=== PATIENT | male | born 1950 | race Caucasian/White ===

== ENCOUNTER 2017-07-12 04:54 | Inpatient (IN) ==
--- NOTE | 2017-07-12 04:59 | Emergency Department Note ---
ED Disposition Clinical Impression: Acute coronary syndrome Disposition: Still a Patient Condition on Discharge: Serious - Critical Care Critical Care Time: Yes Attestation: On , the high probability of a clinically significant, sudden or life threatening deterioration of the following system(s) required my full and direct attention, intervention and personal management. The time I documented below is in addition to time spent performing reported procedures but includes the following listed in this critical care notation. Vital system(s) involved:: Circulatory Failure My critical care processes included: Assessment & monitoring of V/S, Initial and Re-exams, Data Review/Interpretation, Coordinating Care, Medication Orders and management, Documentation Medical Decision Making - Anastacio Inquiry Pt receiving controlled substance: No Vital Signs: 07/12/17 04:55 07/12/17 05:55 07/12/17 06:00 Temperature 98.4 F Temperature Source Oral Pulse Rate [Right Radial] 75 69 71 Respiratory Rate 19 16 Blood Pressure [Right Arm] 148/90 143/87 149/96 Blood Pressure Mean [Right Arm] 109 105 113 Blood Pressure Source [Right Arm] Automatic Cuff Automatic Cuff Automatic Cuff Blood Pressure Position [Right Arm] Sitting Sitting 02 Sat by Pulse Oximetry 98 98 98 Oxygen Delivery Method Room Air Room Air 07/12/17 06:55 07/12/17 07:00 07/12/17 07:05 Temperature Temperature Source Pulse Rate [Right Radial] 67 83 70 Respiratory Rate 12 17 14 Blood Pressure [Right Arm] 139/90 119/70 123/81 Blood Pressure Mean [Right Arm] 106 86 95 Blood Pressure Source [Right Arm] Automatic Cuff Automatic Cuff Automatic Cuff Blood Pressure Position [Right Arm] Supine Sitting Sitting 02 Sat by Pulse Oximetry 97 97 97 Oxygen Delivery Method Room Air Room Air 07/12/17 07:17 Temperature Temperature Source Pulse Rate [Right Radial] 74 Respiratory Rate 14 Blood Pressure [Right Arm] 122/77 Blood Pressure Mean [Right Arm] 92 Blood Pressure Source [Right Arm] Automatic Cuff Blood Pressure Position [Right Arm] Sitting 02 Sat by Pulse Oximetry 97 Oxygen Delivery Method - Lab Data Lab Results 07/12/17 05:15: WBC 5.8, RBC 4.15 L, Hgb 13.0 L, Hct 40.0 L, MCV 96.5 H, MCH 31.2, MCHC 32.4, RDW 12.8, Plt Count 254, MPV 6.8 L, Neut % (Auto) 58.8, Lymph % (Auto) 32.6, [place] % (Auto) 6.2, Eos % (Auto) 2.1, Baso % (Auto) 0.4, Neut # ( Auto) 3.4, Lymph # (Auto) 1.9, [place] # (Auto) 0.4, Eos # (Auto) 0.1, Baso # (Auto ) 0.0 07/12/17 05:15: Sodium 141, Potassium 3.6, Chloride 104, Carbon Dioxide 27, Anion Gap 13.6, BUN 17, Creatinine 1.10, Estimated Creat Clear 85, Estimated GFR 67, Est GFR ( Amer) 81, Glucose 110 H, Calcium 8.4 L, Total Bilirubin 0.2, AST 24, ALT 35, Alkaline Phosphatase 90, Total Creatine Kinase 397 H, CK-MB (CK-2) 9.1 H*, CK-MB (CK-2) Rel Index 2.3, Troponin I 0.44 H, Total Protein 6.9, Albumin 3.6, Globulin 3.3 H, Albumin/Globulin Ratio 1.1 07/12/17 05:15: D-Dimer 307 Result diagrams: 07/12/17 05:15 07/12/17 05:15 Orders (Tests/Meds): ED MEDICATIONS Generic Name Dose Route Start Last Admin Trade Name Freq PRN Reason Stop Dose Admin Metoprolol Tartrate 50 mg 07/12/17 09:00 Lopressor 50mg Tablet PO 08/11/17 08:59 BID YUE Nitroglycerin 0.4 mg 07/12/17 06:53 07/12/17 07:05 Nitrostat 0.4mg Sl Tablet SL 07/13/17 06:54 0.4 mg Q5MINP PRN Administration Chest Pain Nitroglycerin 1 gm 07/12/17 07:15 07/12/17 07:10 Nitroglycerin 1 Inch Oint Udp TD 08/11/17 07:14 1 gm Q6H YUE Administration Discontinued Medications Generic Name Dose Route Start Last Admin Trade Name Freq PRN Reason Stop Dose Admin Aspirin 162 mg 07/12/17 05:05 07/12/17 05:07 Aspirin 81mg Chewable Tablet PO 07/12/17 05:06 162 mg ONCE ONE Administration Ticagrelor 180 mg 07/12/17 07:02 07/12/17 07:13 Brilinta 90mg Tablet PO 07/12/17 07:03 180 mg ONCE ONE Administration ORDERS Category Date Time Status XR chest 2V Stat Exams 07/12/17 05:05 Taken - Radiology Data #1 Image(s): Chest Image Reviewed: Yes I reviewed the patient's radiology image Increased density at the lateral aspect of minor fissure - ECG Data Tracing #1 EKG interpreted by Raul Gates MD: Rhythm: sinus Rate: 77 [place]: normal Ectopy: none Conduction: normal ST Segment Changes: none T Wave Changes: none Q Waves: none No evidence of acute ischemia or injury Normal electrocardiogram Baseline artifact present, but I consider the EKG adequate for accurate interpretation. - MARGUERITE Score for Non-STEMI Age of patient: 65 yrs or more Number of risk factors for CAD: Presence of less than 3 Prior coronary artery stenosis(seen in coronary angiography): Less than 50% ST-Segment deviation on ECG (more than 1 min): Absent Prior aspirin intake: No ASA in the last 7 days Severe anginal chest pain: Two or more episodes in last 24 hours Elevated cardiac markers(CK-MB or troponin): Present Non-Stemi Risk Score: 3 Medical Decision Narrative: 6:50 AM: Pain 06/07. 6:55 AM: Discussed with Dr. Gayle. He requests Brilinta 180 mg, oral metoprolol. Admit, and he will consult. 7:00 AM: I have discussed the case with Dr. Mares for Dr. Benitez who agrees to admit the patient to the hospital. We discussed the patient's clinical information, including history, exam, laboratory and radiology results and ED course. Per hospital procedure, I will write temporary bridge inpatient orders on the patient. Specific orders requested by the admitting physician: Serial cardiac enzymes, cardiology consult General Adult HPI - General Stated complaint: chest pain Time Seen by Provider: 07/12/17 05:49 - History of Present Illness HPI narrative: The patient complains of 24 hours of intermittent chest pain. He describes it as sharp, left parasternal in location, lasting minutes at a time. He says it is there about 60% of the time and gone about 40% of the time. Nothing seems to make it better or worse. He says it is not pleuritic. Denies shortness of air, nausea, diaphoresis, fever, cough, hemoptysis, leg pain. He does have some chronic swelling of the legs. 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 This has also caused increased stress. His most recent surgery was 2 months ago, prostate surgery. - Related Data Home Medications Medication Instructions Recorded Confirmed Finasteride [Proscar 5mg Tablet] 5 mg PO DAILY 07/12/17 07/12/17 Omeprazole [Omeprazole 20mg 20 mg PO DAILY 07/12/17 07/12/17 Capsule] Tamsulosin HCl [Flomax 0.4mg 0.8 mg PO DAILY 07/12/17 07/12/17 capsule] Allergies Allergy/AdvReac Type Severity Reaction Status Date / Time Penicillins [PENICILLINS] Allergy Unknown Verified 07/12/17 05:02 [facility] History I have reviewed the patient's past medical history: Yes ROS Obtained: Yes All systems reviewed & no additional complaints - Constitutional Constitutional: Denies excessive sweating, Denies fever(s) - Cardiovascular Cardiovascular: Reports chest pain, Reports edema, Denies radiating jaw, neck or arm pain - Respiratory Respiratory: No cough, No dyspnea, No coughing up blood - Gastrointestinal Gastrointestingal: Denies: abdominal pain, nausea, vomiting Physical Exam - General General appearance: alert, in no apparent distress - Head Head exam: atraumatic, normocephalic, normal inspection - Eye Eye exam: Present: normal appearance, PERRL, EOMI - ENT ENT exam: Present: normal exam, normal oropharynx, mucous membranes moist, TM's normal bilaterally, normal external ear exam - Neck Neck exam: Present: normal inspection, full ROM, trachea midline. Absent: meningismus, lymphadenopathy - Chest Chest inspection: Present: normal inspection, symmetric chest wall rise. Absent : tenderness - Respiratory Respiratory exam: Present: normal lung sounds bilaterally. Absent: respiratory distress - Cardiovascular Cardiovascular exam: Present: regular rate, normal rhythm. Absent: JVD - Abdominal Exam Abdominal exam: Present: soft, normal bowel sounds. Absent: distention, tenderness, guarding - Extremities Exam Extremities exam: Present: full ROM, normal capillary refill, other (1+ pitting lower leg edema bilaterally symmetric). Absent: calf tenderness - Neurological Exam Neurological exam: Present: alert, oriented X3 - Psychiatric Psychiatric exam: Present: normal affect, normal mood - Skin Skin exam: Present: warm, dry, intact, normal color
[2017-07-12 06:05] LABS: Basophils % 0.4 % (0.1-2.0); Eosinophils # 0.1 K/mm3 (0.0-0.4); Eosinophils % 2.1 % (0.1-12.0); Lymphocytes # 1.9 K/mm3 (0.7-4.5); Lymphocytes % 32.6 K/mm3 (10-50); Mean Corpuscular HGB Conc 32.4 g/dL (31.8-35.4); Mean Corpuscular Hemoglobin 31.2 pg (27.0-31.2); Mean Corpuscular Volume 96.5 fl (80-94); Mean Platelet Volume 6.8 fl (7.4-10.4); Monocytes # 0.4 K/mm3 (0.1-1.0); Monocytes % 6.2 % (1.7-9.3); Neutrophils # 3.4 K/mm3 (1.8-7.8); Neutrophils % 58.8 % (37.0-80.0); Platelet Count 254 K/mm3 (142-424); Red Blood Count 4.15 M/mm3 (4.60-6.20); Red Cell Distribution Width 12.8 % (11.5-17.5); White Blood Count 5.8 K/mm3 (4.8-10.8)
[2017-07-12 06:47] LABS: Albumin Level 3.6 gm/dL (3.4-5.0); Albumin/Globulin Ratio 1.1 (1.1-1.8); Anion Gap 13.6 mEq/L (5-15); Bilirubin,Total 0.2 mg/dL (0.2-1.0); Calcium 8.4 mg/dL (8.5-10.1); Globulin 3.3 gm/dl (1.3-3.2); Potassium 3.6 mmoL/L (3.5-5.1); Total Protein,Serum 6.9 gm/dL (6.4-8.2)
--- NOTE | 2017-07-12 08:07 | History & Physical Report ---
*Admission Date: 07/12/17 *Chief complaint: Left sided chest pain *History of present illness: 66-year-old male with history of BPH who is status post TURP within the last month presented to the emergency department with about 24 hours of recurring episodes of left mid to upper sternal chest pain described as sharp and stabbing in nature and lasting for 2-3 minutes per episode. Patient was encouraged to come to the ER this morning by his . In the ER he had multiple episodes of chest pain. Initial labs revealed a troponin of 0.44. Dr. Gayle was contacted and the patient has been placed on aspirin and Brilinta as well as metoprolol. Due to persistent episodes of chest pain Nitropaste has been added as well. Patient continues to have episodes of chest pain despite Nitropaste. [facility] History Medical History: Reports:: BPH - *Social History Alcohol Intake: never - Psychiatric History Expresses thoughts of harming self/others: None Suicide Plan Description: No Plan Review of Systems - Review of Systems Review of systems:: pertinent systems reviewed and negative unless documented below - *Respiratory Denies chest congestion, Denies cough, Denies shortness of breath - *Gastrointestinal Denies abdominal pain, Denies belching, Denies bloating Meds Home Medications Medication Instructions Recorded Confirmed Type Finasteride [Proscar 5mg Tablet] 5 mg PO DAILY 07/12/17 07/12/17 History Omeprazole [Omeprazole 20mg 20 mg PO DAILY 07/12/17 07/12/17 History Capsule] Tamsulosin HCl [Flomax 0.4mg 0.8 mg PO DAILY 07/12/17 07/12/17 History capsule] Allergies Allergy/AdvReac Type Severity Reaction Status Date / Time Penicillins [PENICILLINS] Allergy Unknown Verified 07/12/17 05:02 Exam Vital signs and Labs for Last 24 Hours: Temp Pulse Resp BP Pulse Ox 98.2 F 60 16 122/72 97 07/12/17 08:02 07/12/17 08:02 07/12/17 08:02 07/12/17 08:02 07/12/17 07:17 Narrative: Patient does not appear to be in any distress. HEENT exam is grossly normal. Neck is without carotid bruits. Lungs are clear to auscultation. Heart has a regular rate and rhythm. Chest wall exam does not reproduce any pain with palpation of the intercostals or costochondral margins of the left chest. Abdomen is soft and nontender. Extremities are without edema. Assessment and Plan (1) Acute coronary syndrome Current visit: Yes Status: Acute Category: Medical Code(s): I24.9 - Acute ischemic heart disease, unspecified - Assessment and plan all Dx Assessment and Plan for all problems:: Patient has been admitted and given Brilinta, metoprolol, aspirin. Await cardiology evaluation. Additional troponins have been ordered
--- NOTE | 2017-07-12 11:45 | Pharmacy Consult Notes ---
[facility] Pharmacy VTE Monitoring - Patient Demographics Admission date: 07/12/17 Report Date: 07/12/17 Time: 11:45 Allergies/Adverse Reactions: Patient Allergies Penicillins [PENICILLINS] Allergy (Unknown, Verified 07/12/17 05:02) Height: 1.8 m Weight: 91.682 kg Patient Problems: Current Active Problems Acute coronary syndrome (Acute) - VTE Risk Labs: VTE Related Lab Results Hgb 13.0 g/dL (14.1-18.0) L 07/12/17 05:15 Hct 40.0 % (42.0-52.0) L 07/12/17 05:15 Plt Count 254 K/mm3 (142-424) 07/12/17 05:15 BUN 17 mg/dL (7-18) 07/12/17 05:15 Creatinine 1.10 mg/dL (0.70-1.30) 07/12/17 05:15 Estimated Creat Clear 85 mL/min (0-300) 07/12/17 05:15 Was VTE Risk Assessment Performed: Yes VTE Score: 1 VTE Risk Level: Very Low Risk - Prophylaxis Types of VTE Prophylaxis: TEDS Knee High Location of Applied Device: Bilateral Lower Extremeties - VTE Diagnosis Confirmed Comment: WILLI TYLER ORDERED
--- NOTE | 2017-07-13 08:24 | Discharge Summary ---
General - General Admission date: 07/12/17 Discharge date: 07/13/17 HPI HPI: 66-year-old male with history of BPH who is status post TURP within the last month presented to the emergency department with about 24 hours of recurring episodes of left mid to upper sternal chest pain described as sharp and stabbing in nature and lasting for 2-3 minutes per episode. Patient was encouraged to come to the ER this morning by his . In the ER he had multiple episodes of chest pain. Initial labs revealed a troponin of 0.44. Dr. Gayle was contacted and the patient has been placed on aspirin and Brilinta as well as metoprolol. Due to persistent episodes of chest pain Nitropaste has been added as well. Patient continues to have episodes of chest pain despite Nitropaste. Hospital Course Hospital Course: She was admitted with an indeterminant first troponin. Subsequent troponins were positive confirming a diagnosis of acute coronary syndrome/non-ST elevation MO. Dr. Gayle took the patient to the Insulation Worker Apprentice with findings and recommendations described as follows: ANGIOGRAPHIC RESULTS: 1. The left main artery has an ostial 30% stenosis 2. The left anterior descending artery has proximal 10% stenoses and a mid vessel 30-40% stenosis. The LAD is a small system. 3. The circumflex artery is a nondominant yet moderate to large system which has a proximal 30-40% stenosis. The 3 obtuse marginal arteries are normal 4. The right coronary artery is a large dominant vessel having a proximal eccentric 10% stenosis. A distal large posterior descending artery is subtotally occluded with MARGUERITE II flow down the vessel. After the stent MARGUERITE-3 flow was present 5. The MANUEL ventriculogram reveals ejection fraction of 55% with a large amount of inferior wall hypokinesis 6. The left ventricular end-diastolic pressure elevated at 25 mmHg IMPRESSION: 1. Subtotal occlusion of a large posterior descending off the dominant right coronary artery producing the non-ST elevation myocardial infarction as well as a large regional wall motion abnormality 2. Successful stenting of the large distal dominant right coronary artery subtotal occlusion reduced to less than 10% with 2 drug-eluting stents 3. Preserved ejection fraction with large regional wall motion abnormality 4. Moderately elevated LVEDP 5. Mild left main disease 6. Mild to moderate mid LAD disease in a relatively small LAD system PLAN: 1. Brilinta 90 mg twice a day plus aspirin 81 mg a day for at least one year 2. LDL less than 55 3. Carvedilol and lisinopril should both be started 4. Cardiac rehabilitation 5. Avoidance of tobacco products 6. Very aggressive risk factor modification After cardiac catheterization patient was monitored for the routine postprocedural timeframe. On the following morning he was chest pain-free and was discharged home. He will follow-up with Dr. Gayle's office later this week Objective Vital signs: Temp Pulse Resp BP Pulse Ox 99.9 F H 69 18 111/58 96 07/13/17 04:00 07/13/17 04:00 07/13/17 04:00 07/13/17 04:00 07/13/17 04:00 Results Labs on day of discharge: Labs from last 24 hours 07/12/17 07/12/17 07/12/17 15:00 13:01 12:54 Activated Clotting Time 301 H* 365 H* Troponin I 5.25 H 07/12/17 07/12/17 11:00 08:25 Activated Clotting Time Troponin I 1.89 H 1.24 H DS: Diagnosis - Discharge Diagnosis (1) Acute coronary syndrome Status: Acute (2) Non-ST elevation MO (NSTEMI) Status: Acute Discharge Plan - Patient Discharge Instructions ACTIVITY: Continue current activity DIET: cardiac - Follow up Plan Follow up with: Garth Gayle MD [Staff Physician] - 1 week Riky Benitez MD [Primary Care Provider] - 1 week Disposition: Home, Self-Correction Medications: Home Medications Medication Instructions Recorded Confirmed Type Finasteride [Proscar 5mg Tablet] 5 mg PO DAILY 07/12/17 07/12/17 History Omeprazole [Omeprazole 20mg 20 mg PO DAILY 07/12/17 07/12/17 History Capsule] Tamsulosin HCl [Flomax 0.4mg 0.8 mg PO DAILY 07/12/17 07/12/17 History capsule] Prescriptions/Medication Reconciliation: New Aspirin [Aspirin 81mg EC Tab] 81 mg PO DAILY #30 tablet.dr [place] Calcium [Atorvastatin 40mg Tab] 40 mg PO HS #30 tab Carvedilol [Carvedilol 3.125mg Tab] 3.125 mg PO BID #60 tab Lisinopril [Lisinopril 5mg Tablet] 5 mg PO DAILY #30 tab Ticagrelor [Brilinta 90mg Tablet] 90 mg PO BID #60 tab Continue Tamsulosin HCl [Flomax 0.4mg capsule] 0.8 mg PO DAILY Finasteride [Proscar 5mg Tablet] 5 mg PO DAILY Omeprazole [Omeprazole 20mg Capsule] 20 mg PO DAILY
[2017-07-13 09:14] VITALS: BP 130/68
== END 2017-07-13 10:12 | disposition home or self-care (01) ==
LOC: 2ND 04:54 → ER 04:54 → OBSVTOIN 08:03 → 2ND 08:04
PROVIDERS: ADMIT Family Medicine; ATTEND Internal Medicine Adolescent Medicine

== ENCOUNTER → 2017-07-28 15:36 | Outpatient (CLI) | payer MEDICARE, BC, SELFPAY ==
[2017-07-28 16:13] LABS: Basophils # 0.1 K/mm3 (0-0.2); Basophils % 0.7 % (0.1-2.0); Eosinophils # 0.2 K/mm3 (0.0-0.4); Eosinophils % 2.5 % (0.1-12.0); Hematocrit 44.5 % (42.0-52.0); Hemoglobin 14.8 g/dL (14.1-18.0); Lymphocytes # 1.9 K/mm3 (0.7-4.5); Lymphocytes % 23.7 K/mm3 (10-50); Mean Corpuscular HGB Conc 33.2 g/dL (31.8-35.4); Mean Corpuscular Hemoglobin 31.9 pg (27.0-31.2); Mean Corpuscular Volume 95.9 fl (80-94); Mean Platelet Volume 6.5 fl (7.4-10.4); Monocytes # 0.4 K/mm3 (0.1-1.0); Monocytes % 5.3 % (1.7-9.3); Neutrophils # 5.4 K/mm3 (1.8-7.8); Neutrophils % 67.8 % (37.0-80.0); Platelet Count 287 K/mm3 (142-424); Red Blood Count 4.64 M/mm3 (4.60-6.20); Red Cell Distribution Width 12.8 % (11.5-17.5)
[2017-07-28 16:15] LABS: Alanine Aminotransferase 36 U/L (12-78); Albumin Level 3.6 gm/dL (3.4-5.0); Alkaline Phosphatase 100 U/L (46-116); Anion Gap 9.6 mEq/L (5-15); Aspartate Amino Transferase 23 U/L (15-37); Bilirubin,Direct 0.2 mg/dL (0.0-0.2); Bilirubin,Total 0.5 mg/dL (0.2-1.0); Blood Urea Nitrogen 15 mg/dL (7-18); CKMB Relative Index 1.2 U/L (0-4.0); Carbon Dioxide 29 mmol/L (21.0-32.0); Chloride 105 mmol/L (98-107); Chol/HDL Ratio 2.3 (1-3.5); Cholesterol 89 mg/dL (140-200); Creatine Kinase 172 U/L (39-308); Creatine Kinase MB 2.1 ng/ml (0.0-3.6); Creatinine,Serum 1.11 mg/dL (0.70-1.30); Estimated Glomerular Filt Rate 66 ml/min (>60); GFR (African American) 80 ML/MIN (>60); Glucose 119 mg/dL (74-106); HDL Cholesterol 39 mg/dL (27-67); LDL Cholesterol 40 mg/dL (0-130); Potassium 4.6 mmoL/L (3.5-5.1); Sodium 139 mmol/L (136-145); Total Protein,Serum 7.2 gm/dL (6.4-8.2); Triglycerides 48 mg/dL (30-200); Troponin I < 0.02 ng/ml (0.00-0.06); VLDL Cholesterol 10 mg/dL (0-40)
== END ==
PROVIDERS: Visit Provider Physician Assistant
DX: I24.9 Acute ischemic heart disease, unspecified (principal); I21.4 Non-ST elevation (NSTEMI) myocardial infarction; R07.9 Chest pain, unspecified
CPT/HCPCS: 36415; 80048; 80061; 80076; 82550; 82553; 84484; 85025

== ENCOUNTER 2017-08-13 13:51 | Outpatient (RCR) | payer MEDICARE, BC, SELFPAY | END 2017-10-13 14:56 | disposition home or self-care (01) | LOC: PT 13:51 | PROVIDERS: PCP Internal Medicine Adolescent Medicine; Visit Provider Internal Medicine | DX: I21.4 Non-ST elevation (NSTEMI) myocardial infarction (principal); I24.9 Acute ischemic heart disease, unspecified; R07.9 Chest pain, unspecified; R94.31 Abnormal electrocardiogram [ECG] [EKG] | CPT/HCPCS: 93798 ==

== ENCOUNTER → 2017-12-22 15:29 | Outpatient (CLI) | payer MEDICARE, BC, SELFPAY ==
[2017-12-22 16:07] LABS: Basophils % 0.3 % (0.1-2.0); Eosinophils # 0.2 K/mm3 (0.0-0.4); Hemoglobin 13.5 g/dL (14.1-18.0); Lymphocytes # 1.8 K/mm3 (0.7-4.5); Lymphocytes % 28.9 K/mm3 (10-50); Mean Corpuscular HGB Conc 33.9 g/dL (31.8-35.4); Mean Corpuscular Hemoglobin 32.3 pg (27.0-31.2); Mean Corpuscular Volume 95.4 fl (80-94); Mean Platelet Volume 6.4 fl (7.4-10.4); Monocytes # 0.4 K/mm3 (0.1-1.0); Monocytes % 6.2 % (1.7-9.3); Neutrophils # 3.8 K/mm3 (1.8-7.8); Neutrophils % 61.5 % (37.0-80.0); Platelet Count 257 K/mm3 (142-424); Red Blood Count 4.19 M/mm3 (4.60-6.20); Red Cell Distribution Width 12.8 % (11.5-17.5); White Blood Count 6.1 K/mm3 (4.8-10.8)
[2017-12-22 16:53] LABS: Alanine Aminotransferase 30 U/L (12-78); Albumin Level 3.6 gm/dL (3.4-5.0); Albumin/Globulin Ratio 1.2 (1.1-1.8); Alkaline Phosphatase 105 U/L (46-116); Anion Gap 11.8 mEq/L (5-15); Aspartate Amino Transferase 15 U/L (15-37); Bilirubin,Total 0.5 mg/dL (0.2-1.0); Blood Urea Nitrogen 18 mg/dL (7-18); Calcium 9.1 mg/dL (8.5-10.1); Carbon Dioxide 28 mmol/L (21.0-32.0); Chloride 105 mmol/L (98-107); Chol/HDL Ratio 2.4 (1-3.5); Cholesterol 90 mg/dL (140-200); Creatinine,Serum 1.18 mg/dL (0.70-1.30); Estimated Glomerular Filt Rate 62 ml/min (>60); GFR (African American) 75 ML/MIN (>60); Glucose 111 mg/dL (74-106); HDL Cholesterol 38 mg/dL (27-67); LDL Cholesterol 41 mg/dL (0-130); Potassium 4.8 mmoL/L (3.5-5.1); Prostate Specific Ag, Diagnost 3.19 ng/mL (0.0-4.0); Sodium 140 mmol/L (136-145); Total Protein,Serum 6.6 gm/dL (6.4-8.2); Triglycerides 56 mg/dL (30-200); VLDL Cholesterol 11 mg/dL (0-40)
== END ==
PROVIDERS: PCP Internal Medicine Adolescent Medicine; Visit Provider Internal Medicine Adolescent Medicine
DX: I25.10 Atherosclerotic heart disease of native coronary artery without angina pectoris (principal); N40.1 Benign prostatic hyperplasia with lower urinary tract symptoms
CPT/HCPCS: 36415; 80053; 80061; 84153; 85025

== ENCOUNTER → 2018-08-13 15:35 | Outpatient (CLI) | payer MEDICARE, BC, SELFPAY ==
[2018-08-13 17:05] LABS: Basophils % 0.4 % (0.1-2.0); Eosinophils # 0.2 K/mm3 (0.0-0.4); Eosinophils % 2.7 % (0.1-12.0); Hematocrit 40.9 % (42.0-52.0); Lymphocytes # 1.5 K/mm3 (0.7-4.5); Lymphocytes % 26.3 % (10-50); Mean Corpuscular HGB Conc 34.2 g/dL (31.8-35.4); Mean Corpuscular Hemoglobin 31.8 pg (27.0-31.2); Mean Corpuscular Volume 93.1 fl (80-94); Mean Platelet Volume 6.6 fl (7.4-10.4); Monocytes # 0.3 K/mm3 (0.1-1.0); Monocytes % 5.5 % (1.7-9.3); Neutrophils # 3.8 K/mm3 (1.8-7.8); Neutrophils % 65.2 % (37.0-80.0); Platelet Count 266 K/mm3 (142-424); Red Blood Count 4.39 M/mm3 (4.60-6.20); Red Cell Distribution Width 12.7 % (11.5-17.5); White Blood Count 5.9 K/mm3 (4.8-10.8)
[2018-08-13 19:22] LABS: Alanine Aminotransferase 35 U/L (12-78); Albumin Level 3.9 gm/dL (3.4-5.0); Albumin/Globulin Ratio 1.3 (1.1-1.8); Alkaline Phosphatase 100 U/L (46-116); Anion Gap 15.6 mEq/L (5-15); Aspartate Amino Transferase 18 U/L (15-37); Bilirubin,Total 0.4 mg/dL (0.2-1.0); Blood Urea Nitrogen 19 mg/dL (7-18); Calcium 8.9 mg/dL (8.5-10.1); Carbon Dioxide 24 mmol/L (21.0-32.0); Chloride 104 mmol/L (98-107); Chol/HDL Ratio 2.6 (1-3.5); Cholesterol 95 mg/dL (140-200); Creatinine,Serum 1.05 mg/dL (0.70-1.30); Estimated Glomerular Filt Rate 70 ml/min (>60); GFR (African American) 85 ML/MIN (>60); Glucose 103 mg/dL (74-106); HDL Cholesterol 36 mg/dL (27-67); LDL Cholesterol 50 mg/dL (0-130); Potassium 4.6 mmoL/L (3.5-5.1); Sodium 139 mmol/L (136-145); Total Protein,Serum 6.9 gm/dL (6.4-8.2); Triglycerides 44 mg/dL (30-200); VLDL Cholesterol 9 mg/dL (0-40)
== END ==
PROVIDERS: Visit Provider Internal Medicine Adolescent Medicine
DX: I25.10 Atherosclerotic heart disease of native coronary artery without angina pectoris (principal)
CPT/HCPCS: 36415; 80053; 80061; 85025

== ENCOUNTER → 2019-04-19 15:02 | Outpatient (CLI) | payer MEDICARE, BC, SELFPAY | PROVIDERS: PCP Internal Medicine Adolescent Medicine; Visit Provider Urology | DX: I10 Essential (primary) hypertension; I25.10 Atherosclerotic heart disease of native coronary artery without angina pectoris; Z95.5 Presence of coronary angioplasty implant and graft; E78.49 Other hyperlipidemia | CPT/HCPCS: 93306 ==

== ENCOUNTER → 2019-10-05 14:41 | Outpatient (CLI) | payer MEDICARE, BC, SELFPAY ==
[2019-10-05 15:08] LABS: Basophils % 0.4 % (0.1-2.0); Eosinophils # 0.2 K/mm3 (0.0-0.4); Eosinophils % 3.5 % (0.1-12.0); Hematocrit 39.3 % (42.0-52.0); Lymphocytes # 1.5 K/mm3 (0.7-4.5); Mean Corpuscular HGB Conc 35.6 g/dL (31.8-35.4); Mean Corpuscular Hemoglobin 33.4 pg (27.0-31.2); Mean Corpuscular Volume 93.8 fl (80-94); Monocytes # 0.3 K/mm3 (0.1-1.0); Monocytes % 5.3 % (1.7-9.3); Neutrophils # 3.8 K/mm3 (1.8-7.8); Neutrophils % 64.7 % (37.0-80.0); Platelet Count 261 K/mm3 (142-424); Red Blood Count 4.18 M/mm3 (4.60-6.20); Red Cell Distribution Width 13.1 % (11.5-17.5); White Blood Count 5.9 K/mm3 (4.8-10.8)
[2019-10-05 15:40] LABS: Chloride 105 mmol/L (98-107); Potassium 4.8 mmoL/L (3.5-5.1); Sodium 137 mmol/L (136-145)
[2019-10-05 15:42] LABS: Blood Urea Nitrogen 16 mg/dl (9-20); Estimated Glomerular Filt Rate 74 ml/min (>60); GFR (African American) 90 ML/MIN (>60)
[2019-10-05 15:43] LABS: Alanine Aminotransferase 23 U/L (12-78); Albumin Level 3.8 g/dl (3.5-5.0); Albumin/Globulin Ratio 1.4 (1.1-1.8); Alkaline Phosphatase 97 U/L (38-126); Anion Gap 8.8 mEq/L (5-15); Aspartate Amino Transferase 28 U/L (17-59); Bilirubin,Total 0.6 mg/dl (0.2-1.3); Calcium 8.9 mg/dl (8.4-10.2); Carbon Dioxide 28 mmol/L (22.0-30.0); Cholesterol 86 mg/dl (140-200); Globulin 2.7 g/dL (1.3-3.2); Glucose 119 mg/dl (74-100); Total Protein,Serum 6.5 g/dl (6.3-8.2); Triglycerides 65 mg/dl (30-150); VLDL Cholesterol 13 mg/dL (0-40)
[2019-10-05 15:44] LABS: Chol/HDL Ratio 2.6 (1-3.5); HDL Cholesterol 33 mg/dl (40-60)
[2019-10-05 15:54] LABS: Direct LDL Cholesterol 47.92 mg/dL (100-129)
== END ==
PROVIDERS: Visit Provider Nurse Practitioner Family
DX: I25.10 Atherosclerotic heart disease of native coronary artery without angina pectoris (principal); Z86.2 Personal history of diseases of the blood and blood-forming organs and certain disorders involving the immune mechanism
CPT/HCPCS: 36415; 80053; 80061; 85025

== ENCOUNTER → 2020-12-04 17:19 | Outpatient (CLI) | payer MEDICARE, BC, SELFPAY | PROVIDERS: PCP Internal Medicine Adolescent Medicine; Visit Provider Nurse Practitioner Family | DX: Z20.822 Contact with and (suspected) exposure to COVID-19 (principal) | CPT/HCPCS: U0003 ==

== ENCOUNTER → 2021-04-23 19:46 | Outpatient (CLI) | payer MEDICARE, BC, SELFPAY | PROVIDERS: PCP Internal Medicine Adolescent Medicine; Visit Provider Nurse Practitioner | DX: U07.1 COVID-19 (principal) | CPT/HCPCS: C9803; U0003; U0005 ==

== ENCOUNTER → 2021-08-27 14:54 | Outpatient (CLI) | payer MEDICARE, BC, SELFPAY ==
[2021-08-27 15:50] LABS: Basophils # 0.2 K/mm3 (0-0.2); Basophils % 3.7 % (0.1-2.0); Eosinophils # 0.2 K/mm3 (0.0-0.4); Hematocrit 41.9 % (42.0-52.0); Hemoglobin 14.1 g/dL (14.1-18.0); Lymphocytes # 1.4 K/mm3 (0.7-4.5); Lymphocytes % 21.2 % (10-50); Mean Corpuscular HGB Conc 33.7 g/dL (31.8-35.4); Mean Corpuscular Hemoglobin 32.9 pg (27.0-31.2); Mean Corpuscular Volume 97.8 fl (80-94); Mean Platelet Volume 7.3 fl (7.4-10.4); Monocytes # 0.4 K/mm3 (0.1-1.0); Monocytes % 6.1 % (1.7-9.3); Neutrophils # 4.2 K/mm3 (1.8-7.8); Platelet Count 257 K/mm3 (142-424); Red Blood Count 4.29 M/mm3 (4.60-6.20); Red Cell Distribution Width 13.2 % (11.5-17.5); White Blood Count 6.4 K/mm3 (4.8-10.8)
[2021-08-27 16:18] LABS: Chloride 106 mmol/L (98-107); Potassium 4.6 mmoL/L (3.5-5.1)
[2021-08-27 16:20] LABS: Alanine Aminotransferase 25 U/L (12-78); Alkaline Phosphatase 88 U/L (38-126); Aspartate Amino Transferase 32 U/L (17-59); Bilirubin,Total 0.8 mg/dl (0.2-1.3); Blood Urea Nitrogen 15 mg/dl (9-20); Estimated Glomerular Filt Rate 83 ml/min (>60); GFR (African American) 101 ML/MIN (>60)
[2021-08-27 16:21] LABS: Albumin Level 3.7 g/dl (3.5-5.0); Albumin/Globulin Ratio 1.5 (1.1-1.8); Calcium 9.2 mg/dl (8.4-10.2); Carbon Dioxide 27 mmol/L (22.0-30.0); Chol/HDL Ratio 2.9 (1-3.5); Cholesterol 89 mg/dl (140-200); Globulin 2.5 g/dL (1.3-3.2); Glucose 119 mg/dl (74-100); HDL Cholesterol 31 mg/dl (40-60); Total Protein,Serum 6.2 g/dl (6.3-8.2); Triglycerides 90 mg/dl (30-150); VLDL Cholesterol 18 mg/dL (0-40)
[2021-08-27 16:28] LABS: Hemoglobin A1C 5.9 % (4.0-6.0)
[2021-08-27 16:32] LABS: Direct LDL Cholesterol 44.44 mg/dL (100-129)
[2021-08-27 16:51] LABS: Anion Gap 9.6 mEq/L (5-15); Sodium 138 mmol/L (136-145)
== END ==
PROVIDERS: Visit Provider Nurse Practitioner Family
DX: R73.9 Hyperglycemia, unspecified (principal); I10 Essential (primary) hypertension; N40.1 Benign prostatic hyperplasia with lower urinary tract symptoms; Z12.5 Encounter for screening for malignant neoplasm of prostate
CPT/HCPCS: 36415; 80053; 80061; 83036; 85025; G0103

== ENCOUNTER → 2022-05-09 06:51 | Outpatient (CLI) | payer MEDICARE, BC, SELFPAY ==
--- NOTE | 2022-05-09 06:52 | CA_ITS ---
APPROVED REPORT EXAM: Comprehensive 2D, Doppler, and color-flow Echocardiogram Tailing Machine Operator: Sandra Jefferson, JEOVANY, RVS Ht: 5 ft 11 in Wt: 203lbs BSA: 2.12 BP: 131/69 mmHg Indications: Abn EKG, HTN, Edema, CAD 2D Dimensions Aortic Root 2.98 cm LA Volume 38.50 mL Left Atrium 3.57 cm LA Volume Index 17.70 mL/m2 (M/F) 16-34 LVOT 2.03 cm (M/F) 1.5-2.5 M-Mode Dimensions RVDd 2.70 cm (0.9-2.6) LA Diam 3.70 cm (1.9-4.0) LVDd 4.98 cm (3.5-5.7) Ao Diam 2.93 cm (2.0-3.7) LVDs 2.96 cm (3.5-5.7) IVSd 0.87 cm (0.6-1.1) PWd 0.95 cm (0.6-1.1) EF (Teich) 71.10% EPSs 0.65 cm FS 40.60% EDV (Teich) 117.10 mL TAPSE 2.02 (<1.7) ESV (Teich) 33.90 mL LV Diastology E Decel Time 150.00 (160-240 msec) E/A Ratio 1.26 MED E' 8.90 (< 7 cm/sec) MED A' 11.10 cm/s E'/MED E' Ratio 11.64 (>14) LAT E' 8.60 (<10 cm/sec) LAT A' 11.60 cm/s E/LAT E' Ratio 12.05 (>14) Aortic Valve LVOT Max 115.00 (70-110 cm/s) LVOT VTI 27.10 cm AoV Peak Kareem. 112.00 (50-130 cm/s) AO Peak GR. 5.10 mmHg AO Mean GR. 2.50 (<5 mmHg) AO VTI 24.67 (18-25 cm) CROW (VTI) 3.56 (2.5-4.5 cm2) Mitral Valve MV A Velocity 82.00 (40-130 cm/s) E/A Ratio 1.26 MV Decel. Time 150.00 (160-240 ms) MV PHT 47.00 ms Pulmonary Valve PV Peak Velocity 117.00 (50-150 cm/s) MA End VMAX 175.00 cm/s Left Ventricle Left atrium is mildly enlarged, left ventricle is normal size mild concentric left ventricular hypertrophy, estimated ejection fraction 55% with no regional wall motion abnormality, grade 1 diastolic dysfunction seen without tissue Doppler evidence of raise left atrial pressure. Right Ventricle Right atrium and right ventricular mildly enlarged with normal contractility. Aortic Valve Aortic valve is minimally thickened and fibrosed there is no aortic stenosis or aortic insufficiency. Mitral Valve Mitral valve is grossly normal, there is trace mitral regurgitation. Tricuspid Valve Tricuspid valve grossly normal, there is trace tricuspid regurgitation, tricuspid regurgitation jet velocity is inadequate for calculation of the right ventricular systolic pressure. Pulmonic Valve Pulmonic valve is poorly visualized. Great Vessels Aortic root is normal size. Inferior vena cava is normal size with normal inspiratory collapse. Pericardium No significant pericardial effusion noted. Conclusion 1. Mild biatrial enlargement, normal left ventricular size, mild concentric left ventricular hypertrophy, estimated ejection fraction 55% with no regional wall motion abnormality, grade 1 diastolic dysfunction seen without tissue Doppler evidence of raise left atrial pressure. 2. Mildly enlarged right ventricle with normal contractility 3. Trace mitral and tricuspid regurgitation. 4. No significant pericardial effusion. 5. Inferior vena cava is normal size with normal inspiratory collapse. Electronically signed by : Manoj Lynch MD 05/10/2022 13:09:17
--- NOTE | 2022-05-09 06:52 | NM_ITS ---
APPROVED REPORT Exam: Nuclear Stress Test Indication: abn ekg..leg swelling Patient Location: Outpatient Stress Tech: Suzette Winter NE Tech:Saira HouJANA RT(R)(N) Ht: 5 ft 11 in Wt: 202 lbs HR: 62 bpm BP: 110/66 mmHg BSA: 2.12 m2 TID: 1.21 BMI: 28.1 History: abn ekg..leg swelling Procedure: Patient received a 0.4 mg of intravenous Lexiscan, resting heart rate 62 bpm, resting blood pressure 110/66 mmHg, with Lexiscan maximum heart rate achived was 75 bpm which is Less than 85 % of the maximum predicted heart rate and blood pressure was 110/66 mmHg. With Lexiscan, patient denied any complaint of chest pain. Electrocardiogram Resting electrocardiogram shows sinus rhythm, with Lexiscan there is less than 1.[address] segment depression noted from the baseline EKG. The EKG portion of the Lexiscan is nondiagnostic. Cardiac Stress and Resting SPECT Images: Cardiac Stress and Resting SPECT images were obtained using technetium 99m Myoview 31.8 mCi stress and 10.63 mCi at rest. Gated SPECT for analysis of segmental wall motion and calculation of the ejection fraction also done. Prone images were also obtained. Cardiac prone images show uniform myocardial activity without segmental perfusion abnormality, computer derived ejection fraction is 57% with no regional wall motion abnormality, right ventricle is normal size and contractility. Conclusion: 1. The EKG portion of the Lexiscan is nondiagnostic. 2. No scintigraphic evidence of reversible ischemia seen, computer derived ejection fraction 57% with no regional wall motion abnormality, right ventricle is normal size and contractility. 3. Normal Lexiscan Myoview study. Electronically signed by : Manoj Lynch MD 05/10/2022 09:53:11
--- NOTE | 2022-05-09 06:52 | CA_ITS ---
APPROVED REPORT Exam: Pharmacologic Technologist: Suzette Winter, Ht: 5 ft 10 in Wt: 203 lbs BSA: 2.10 m2 HR: 61 bpm BP: 110/66 mmHg Rhythm: NSR, PVCS Indications: Abn EKG Medical History Medical History: HTN, Hyperlipidemia Medications: Lisinopril,,,,, Omeprazole,,,,, Atorvastatin,,,,, HCTZ,,,,, Carvedilol,,,,, TAMSULOSIN,,,,, Plavix,,,,, Coenzyme Q10,,,,, MVI,,,,, Allergies: PENICILLIN Cardiac Risk Factors: HTN, Hyperlipidemia Stress Test Details Test: LEXISCAN HR Resting HR: 62 bpm Max Heart Rate (APMHR): 149.970893 bpm Max HR Achieved: 75 bpm Target HR (85% APMHR): 126.110432 bpm % of APMHR: 50.34 Recovery HR: 72 bpm BP Resting BP: 110/66 mmHg Max BP: 110/66 mmHg Recovery BP: 108.0/68.0 mmHg ECG Resting ECG: NSR, PVCS Clinical Exercise duration: 04:06 min Highest Stage Achieved: Exercise capacity: 1.0 METs Stress ECG Conclusion PT HAD MILD SOA, STOMACH DISCOMFORT. MALAISE OCC PVC. RARE PAC NO SIGNIFICANT CHANGES HYPOTENSION WITH LEXISCAN OTHER CORBETT REMARKABLE MYOVIEW IMAGES REPORTED SEPARATELY Test Summary REST 03:58 . . 62 . 110/ 66 . . Stage 1 01:00 . . 68 . . . . Stage 2 01:00 . . 65 . . . . Stage 3 01:00 . . 60 . . . . Stage 4 01:00 . . 62 . 98/ 61 . . Stage 4 01:06 . . 63 . 98/ 61 . Stop exercise at 04:06 RECOVERY 01:00 . . 64 . 101/ 65 . . RECOVERY 02:00 . . 68 . 101/ 65 . . RECOVERY 03:00 . . 64 . 109/ 60 . . RECOVERY 04:00 . . 67 . 109/ 60 . . RECOVERY 05:00 . . 67 . 108/ 68 . . RECOVERY 05:13 . . 66 . 108/ 68 . . Electronically signed by : Manoj Lynch MD 05/10/2022 09:50:25
== END ==
PROVIDERS: PCP Internal Medicine Adolescent Medicine; Visit Provider Physician Assistant
DX: I10 Essential (primary) hypertension; I25.10 Atherosclerotic heart disease of native coronary artery without angina pectoris; I89.0 Lymphedema, not elsewhere classified; R60.0 Localized edema; Z95.5 Presence of coronary angioplasty implant and graft; E78.49 Other hyperlipidemia
CPT/HCPCS: 78452; 93017; 93306; A9502; J2785

== ENCOUNTER → 2022-05-16 12:26 | Outpatient (CLI) | payer MEDICARE, BC, SELFPAY ==
[2022-05-16 14:07] LABS: Anion Gap 13.1 mEq/L (5-15); Blood Urea Nitrogen 15 mg/dl (9-20); Carbon Dioxide 27 mmol/L (22.0-30.0); Chloride 102 mmol/L (98-107); Estimated Glomerular Filt Rate 74 ml/min (>60); GFR (African American) 89 ML/MIN (>60); Glucose 99 mg/dl (74-100); Potassium 4.1 mmoL/L (3.5-5.1); Sodium 138 mmol/L (136-145)
== END ==
PROVIDERS: PCP Internal Medicine Adolescent Medicine; Visit Provider Physician Assistant
DX: I10 Essential (primary) hypertension; I25.10 Atherosclerotic heart disease of native coronary artery without angina pectoris; I89.0 Lymphedema, not elsewhere classified; R60.0 Localized edema; Z95.5 Presence of coronary angioplasty implant and graft; E78.49 Other hyperlipidemia
CPT/HCPCS: 36415; 80048

== ENCOUNTER 2022-07-24 16:00 | Outpatient (RCR) | payer MEDICARE, BC, SELFPAY ==
--- NOTE | 2022-05-24 16:21 | HMH.PTOPWND ---
Rehab Outpt Wound Evaluation Rehab OP Wound Evaluation Start: 05/24/22 16:07 Freq: Status: Active Protocol: Document 05/24/22 16:07 ANGEL (Rec: 05/24/22 16:18 [email or web address] [id number]) E-signed By Ayden Osorio, PT Subjective/History History History This is the initial PT eval for Ed Jackson 71 yowm who presents with c/o B LE edema for ~4-5 yrs, R worse than L. He reports no c/o pain at this time, but some tenderness to palpation in B lower legs. He reports no numbness or tingling. 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 He reports PMH of PA, hernia repair and prostate surgery. Subjective Subjective Pt with no c/o pain, 0/10 at this time. 1/4 TTP to B gaiter area. 3+ pitting edema to R ankle, 2+ pitting edema to L ankle. Significant amts of Blue telangiectasia noted to B feet and ankles. Lymphedema Eval Classification of Lymphedema Secondary Lymphedema Yes: CVI Stemmer's sign Stemmer's Sign no Stage of Lymphedema Lymphedema stages Stage I (Pitting edema, reduces w/ elevation, no fibrosis) Skin Changes Dry Skin Yes Skin Folds Yes Redness Yes Brittle Uneven Nails Yes Discoloration of Skin Yes Other Changes Yes Affected Extremities Areas Affected by Lymphedema/Edema Right Lower Extremity,Left Lower Extremity Manual Lymphatic Drainage Treatment Area MLD Treatment Area Right Lower Extremity,Left Lower Extremity Wound Problems/Impairments Impairments Problems/Impairmments Palpation Tenderness,Impaired Recreational Activities, Increased Edema,Lymphedema Present,Impaired Self Care/ Self Management Prognosis Rehab Potential Good Clinical Impression Consistent with Diagnosis Yes Short Term Goals Number of Weeks 2 Decreased Palpation Tenderness Yes: 0/4 B lower legs Decrease Edema Yes: 2+ pitting B Patient
--- NOTE | 2022-06-19 17:08 | HMH.RHREAS ---
Rehab Reassessment Rehab OP Re-assessment Start: 06/19/22 17:02 Freq: Status: Active Protocol: Document 06/19/22 17:03 [email or web address] (Rec: 06/19/22 17:08 ANGEL [id number]) E-signed By Ayden Osorio, PT Rehab Re-assessment Subjective Subjective Pt reports no pain at rest currently, but he does have mild tenderness to palpation in the R lower leg. Overall he feels he has improved. Objective Objective Notes Circumferential measurements: R LE total 241.2 cm which is - 13.8 cm since IE. L LE total is 238.6 cm which is -13.9 cm since IE. 05/01 TTP noted to R Lower Leg. 2+ pitting edema noted to R Lower Leg as well. Assessment Progress Assessment Progressing as Expected Assessment Notes Pt has shown significant improvement in edema overall with > 13 cm total reduction in circumference to B LE. He continues to show improved improved mobility with less edema and less c/o pain and tenderness. Continued PT treatment is warranted to further reduce LE edema. Patient goals met ST,2,3,4 Goals Not Met LT,2,3,4,5 Revised Goals none Plan Plan Continue per initial POC Frequency of Therapy 2 x/wk Duration of therapy 4 wks Time and Billing Re-Eval Time 14 Re-Eval Billing Units 1 PHYSICIAN CERTIFICATION: I certify the specified therapy services for Ed Jackson are required, authorized, and reviewed every 30 days.
== END 2022-07-24 16:05 | disposition home or self-care (01) ==
LOC: PT 16:00
PROVIDERS: PCP Internal Medicine Adolescent Medicine; Visit Provider Physician Assistant
DX: I89.0 Lymphedema, not elsewhere classified (principal); R60.0 Localized edema
CPT/HCPCS: 97140; 97162; 97164; 97760

== ENCOUNTER 2023-11-18 15:03 | Outpatient (CLI) | payer MEDICARE, BC, SELFPAY ==
[2023-11-18 15:37] LABS: Basophils % 0.7 % (0.1-2.0); Eosinophils # 0.1 K/mm3 (0.0-0.4); Eosinophils % 2.4 % (0.1-12.0); Hematocrit 36.5 % (42.0-52.0); Hemoglobin 13.7 g/dL (14.1-18.0); Lymphocytes # 1.3 K/mm3 (0.7-4.5); Lymphocytes % 22.3 % (10-50); Mean Corpuscular HGB Conc 37.4 g/dL (31.8-35.4); Mean Corpuscular Hemoglobin 37.2 pg (27.0-31.2); Mean Corpuscular Volume 99.5 fl (80-94); Mean Platelet Volume 7.5 fl (7.4-10.4); Monocytes # 0.3 K/mm3 (0.1-1.0); Monocytes % 5.2 % (1.7-9.3); Neutrophils # 4.1 K/mm3 (1.8-7.8); Neutrophils % 69.4 % (37.0-80.0); Platelet Count 233 K/mm3 (142-424); Red Blood Count 3.67 M/mm3 (4.60-6.20); Red Cell Distribution Width 13.3 % (11.5-17.5); White Blood Count 5.8 K/mm3 (4.8-10.8)
[2023-11-18 16:38] LABS: Alanine Aminotransferase 26 U/L (12-78); Albumin Level 3.7 g/dl (3.5-5.0); Alkaline Phosphatase 100 U/L (38-126); Anion Gap 7.2 mEq/L (5-15); Aspartate Amino Transferase 28 U/L (17-59); Bilirubin,Indirect 0.9 mg/dL (0.0-0.9); Bilirubin,Total 0.9 mg/dl (0.2-1.3); Blood Urea Nitrogen 13 mg/dl (9-20); Calcium 9.4 mg/dl (8.4-10.2); Carbon Dioxide 28 mmol/L (22.0-30.0); Chloride 106 mmol/L (98-107); Chol/HDL Ratio 2.5 (1-3.5); Cholesterol 104 mg/dl (140-200); Estimated Glomerular Filt Rate 83 ml/min (>60); GFR (African American) 100 ML/MIN (>60); Glucose 117 mg/dl (74-100); HDL Cholesterol 42 mg/dl (40-60); Magnesium 1.7 mg/dl (1.6-2.3); Potassium 4.2 mmoL/L (3.5-5.1); Sodium 137 mmol/L (136-145); Total Protein,Serum 6.1 g/dl (6.3-8.2); Triglycerides 88 mg/dl (30-150); VLDL Cholesterol 18 mg/dL (0-40)
[2023-11-18 16:53] LABS: Free T4 (Free Thyroxine) 0.86 ng/dl (0.78-2.19)
[2023-11-18 17:09] LABS: Thyroid Stimulating Hormone 3.66 uIU/mL (0.465-4.68)
== END 2023-11-18 23:59 | disposition home or self-care (01) ==
LOC: LAB 15:05
PROVIDERS: PCP Internal Medicine Adolescent Medicine; Visit Provider Physician Assistant
DX: I10 Essential (primary) hypertension (principal); I25.10 Atherosclerotic heart disease of native coronary artery without angina pectoris; Z95.5 Presence of coronary angioplasty implant and graft; E78.5 Hyperlipidemia, unspecified; R60.0 Localized edema; I89.0 Lymphedema, not elsewhere classified
CPT/HCPCS: 36415; 80048; 80061; 80076; 83735; 84439; 84443; 85025

== ENCOUNTER 2024-10-07 11:35 | Outpatient (CLI) | payer MEDICARE, BC, SELFPAY ==
[2024-10-07 12:05] LABS: Basophils % 0.7 % (0.1-2.0); Eosinophils # 0.2 Kmm3 (0.0-0.4); Hematocrit 38.9 % (42.0-52.0); Hemoglobin 13.1 g/dL (14.1-18.0); Immature Granulocytes # 0.03 10^3uL; Immature Granulocytes % 0.6 %; Lymphocytes # 1.3 K/mm3 (0.7-4.5); Lymphocytes % 23.5 % (10-50); Mean Corpuscular HGB Conc 33.7 g/dL (31.8-35.4); Mean Corpuscular Hemoglobin 32.6 pg (27.0-31.2); Mean Corpuscular Volume 96.8 fl (80-94); Mean Platelet Volume 8.8 fl (7.4-10.4); Monocytes # 0.5 K/mm3 (0.1-1.0); Monocytes % 8.3 % (1.7-9.3); Neutrophils # 3.4 K/mm3 (1.8-7.8); Neutrophils % 62.9 % (37.0-80.0); Nucleated Red Blood Cells # 0 10^3/uL; Nucleated Red Blood Cells % 0 %; Platelet Count 231 K/mm3 (142-424); Red Blood Count 4.02 M/mm3 (4.60-6.20); Red Cell Distribution Width 12.1 % (11.5-17.5); Red Cell Distribution Width-SD 43.2 fL; White Blood Count 5.5 K/mm3 (4.8-10.8)
[2024-10-07 12:45] LABS: Albumin Level 3.8 g/dl (3.5-5.0); Chloride 106 mmol/L (98-107); Potassium 4.5 mmoL/L (3.5-5.1); Sodium 138 mmol/L (136-145)
[2024-10-07 12:47] LABS: Blood Urea Nitrogen 16 mg/dl (9-20); Estimated Glomerular Filt Rate 83 ml/min (>60); GFR (African American) 100 ML/MIN (>60)
[2024-10-07 12:48] LABS: Alanine Aminotransferase 21 U/L (12-78); Albumin/Globulin Ratio 1.7 (1.1-1.8); Alkaline Phosphatase 83 U/L (38-126); Anion Gap 6.5 mEq/L (5-15); Aspartate Amino Transferase 27 U/L (17-59); Bilirubin,Total 0.5 mg/dl (0.2-1.3); Calcium 10.2 mg/dl (8.4-10.2); Carbon Dioxide 30 mmol/L (22.0-30.0); Cholesterol 102 mg/dl (140-200); Globulin 2.2 g/dL (1.3-3.2); Glucose 118 mg/dl (74-100); HDL Cholesterol 37 mg/dl (40-60); Triglycerides 83 mg/dl (30-150); VLDL Cholesterol 17 mg/dL (0-40)
[2024-10-07 12:49] LABS: Chol/HDL Ratio 2.8 (1-3.5)
[2024-10-07 12:59] LABS: Direct LDL Cholesterol 39.77 mg/dL (100-129)
--- OUTSIDE RECORDS SUMMARY | 2024-10-07 13:25 | XMS_ITS | Data Portability ---
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 POSTOPERATIVE DIAGNOSIS: BPH with bladder outlet obstruction and a history of recent episodic urinary retention. PROCEDURE: Cystoscopy and UroFlow. SURGEON: Sneha Nieves Jr., M.D. ANESTHESIA: Local. FINDINGS: Uroflowmetry shows a voided volume of 101 mL. Flow time is 35.3 seconds. Q-Max is 5.3 mL per second. Q-Mean is 2.9 mL per second. Cystoscopy shows trilobar hypertrophy with a large median lobe and lateral lobe obstruction. OPERATIVE NOTE: The patient gives his full consent for a cystoscopy. He was brought into the operating suite where he was placed in the supine position. He was sterilely prepped and draped in the normal fashion. Uro-Jet lidocaine was used for local anesthesia. The scope was inserted into the patient's urethra and bladder atraumatically. There are no urethral strictures. His prostatic urethra shows trilobar hypertrophy with a large median lobe component and significant obstruction. Cystoscopy does not demonstrate any bladder tumors or bladder stones. Both ureteral orifices are orthoptic in nature with clear efflux. Retroflexed view of the bladder neck shows trilobar hypertrophy consistent with bladder outlet obstruction. The scope was removed. The patient will return to the office next week to discuss potential laser vaporization of the prostate, which I think would be necessary to prevent further episodes of acute urinary retention. [email or web address] Not available 03/26/2017 16:40:43 Plan of Treatment Reminders Order Date Submit Date Provider Last Modified By Organization Details Last Modified Time Details Appointments None recorded . Lab PSA, serum or plasma 019 [facility], [address], [place], [address], 9 07:29:20 urinalys is, dipstick , auto 018 [facility], [address], [place], [address], 8 17:25:02 PSA, serum or plasma 018 [facility], [address], [address], [place], [address], 8 17:25:02 urinalys is, dipstick , auto 018 018 [facility], [address], [address], [place], [address], 8 10:22:35 urinalys is, dipstick , auto 017 017 [facility], [address], [address], [place], [address], 7 18:15:00 Referral None recorded . Procedures None recorded . Surgeries None recorded . Imaging None recorded . Medication Orders None recorded . Patient TargetsNo targets recorded. Patient Instructions Encounter Date Encounter Id Patient Instructions Last Modified By Organization Details Last Modified Time 04/03/2017 [id number] At this point th e patient isVoiding adequately with medical therapy. He is considering outlet procedure because of the appearance of his prostatic urethra on cystoscopy we have recommended laser vaporization of the prostate. We discussed this at length today. [email or web address] Not available 04/06/2017 18:14:54 06/05/2017 [id number] patient is doing well and I talked about expectations regarding voiding function over the next 2-3 months [email or web address] Not available 06/05/2017 10:22:34 08/14/2017 [id number] Plan for annual follow-up with digital rectal exam and PSA. Reassured patient today that PSA is normal. [email or web address] Not available 08/17/2017 17:25:17 09/10/2018 [id number] healthy together tslabau Not availabl e 09/11/2018 07:29:20 prostate biopsy: about this test [email or web address] Not available 09/11/2018 07:29:20 Reason for Referral None Reported. Results Created Date Observation Date Name Description Value Unit Range Abnormal Flag Note LastModifiedBy Organization Detail LastModifiedTime 08/15/19 18 08/14/2017 urina lysis , dipst ick, auto Unknown Analyte Yellow Not Available [facility] [address] [place] [address], [address], 08/14/2017 16:16:49 08/15/19 18 08/14/2017 urina lysis , dipst ick, auto Unknown Analyte Clear Not Available [facility] [address] [place] [address], [address], 08/14/2017 16:16:49 08/15/19 18 08/14/2017 urina lysis , dipst ick, auto Unknown Analyte 1.015 Not Available [facility] [address], [address], 08/14/2017 16:16:49 08/15/19 18 08/14/2017 urina lysis , dipst ick, auto Unknown Analyte 5.0 Not Available [facility] [address], [place], [address], 08/14/2017 16:16:49 08/15/19 18 08/14/2017 urina lysis , dipst ick, auto Unknown Analyte 25 Kajal/ul Trace Not Available [facility] [address], [place], [address], 08/14/2017 16:16:49 08/15/19 18 08/14/2017 urina lysis , dipst ick, auto Unknown Analyte Negati ve Not Available [facility] [address], [place], [address], 08/14/2017 16:16:49 08/15/19 18 08/14/2017 urina lysis , dipst ick, auto Unknown Analyte Negtiv e Not Available [facility] [address], [place], [address], 08/14/2017 16:16:49 08/15/19 18 08/14/2017 urina lysis , dipst ick, auto Unknown Analyte Normal Not Available [facility] [address] [place] [address] [address], [place], [address], 08/14/2017 16:16:49 08/15/19 18 08/14/2017 urina lysis , dipst ick, auto Unknown Analyte Negati ve Not Available [facility] [address], [place], [address], 08/14/2017 16:16:49 08/15/19 18 08/14/2017 urina lysis , dipst ick, auto Unknown Analyte Normal Not Available [facility] [address], [place], [address], 08/14/2017 16:16:49 08/15/19 18 08/14/2017 urina lysis , dipst ick, auto Unknown Analyte Negati ve Not Available [facility] [address], [place], [address], 08/14/2017 16:16:49 08/15/19 18 08/14/2017 urina lysis , dipst ick, auto Unknown Analyte Negati ve Not Available [facility] [address] [facility] [address], [place], [address], 08/14/2017 16:16:49 08/15/19 18 08/14/2017 urina lysis , dipst ick, auto Unknown Analyte Clean Catch Not Available [facility] [address] [place] [address] [address], [place], [address], 08/14/2017 16:16:49 08/15/19 18 08/14/2017 urina lysis , dipst ick, auto Unknown Analyte Automa j luis Not Available [facility] [address] [place] [address] [address], [place], [address], 08/14/2017 16:16:49 06/05/19 18 06/05/2017 urina lysis , dipst ick, auto Unknown Analyte Yellow Not Available [facility] [address], [place], [address], 06/05/2017 10:10:10 06/05/19 18 06/05/2017 urina lysis , dipst ick, auto Unknown Analyte Cloudy Not Available [facility] [address], [place], [address], 06/05/2017 10:10:10 06/05/19 18 06/05/2017 urina lysis , dipst ick, auto Unknown Analyte 1.020 Not Available [facility] [address] [facility] [address], [place], [address], 06/05/2017 10:10:10 06/05/19 18 06/05/2017 urina lysis , dipst ick, auto Unknown Analyte 5.0 Not Available [facility] [address] [facility] [address], [place], [address], 06/05/2017 10:10:10 06/05/19 18 06/05/2017 urina lysis , dipst ick, auto Unknown Analyte 500 Kajal/ul (++) Not Available [facility] [address], [place], [address], 06/05/2017 10:10:10 06/05/19 18 06/05/2017 urina lysis , dipst ick, auto Unknown Analyte Negati ve Not Available [facility] [address] [place] [address] [address], [place], [address], 06/05/2017 10:10:10 06/05/19 18 06/05/2017 urina lysis , dipst ick, auto Unknown Analyte 30 mg/dl (+) Not Available [facility] [address] [place] [address] [address], [place], [address], 06/05/2017 10:10:10 06/05/19 18 06/05/2017 urina lysis , dipst ick, auto Unknown Analyte Normal Not Available [facility] [address], [place], [address], 06/05/2017 10:10:10 06/05/19 18 06/05/2017 urina lysis , dipst ick, auto Unknown Analyte Negati ve Not Available [facility] [address] [place] [address] [address], [place], [address], 06/05/2017 10:10:10 06/05/19 18 06/05/2017 urina lysis , dipst ick, auto Unknown Analyte Normal Not Available [facility] [address] [place] [address] [address], [place], [address], 06/05/2017 10:10:10 06/05/19 18 06/05/2017 urina lysis , dipst ick, auto Unknown Analyte 1 mg/dl (+) Not Available [facility] [address] [place] [address] [address], [place], [address], 06/05/2017 10:10:10 06/05/19 18 06/05/2017 urina lysis , dipst ick, auto Unknown Analyte 250 Hero/ul Not Available [facility] [address] [place] [address] [address], [place], [address], 06/05/2017 10:10:10 06/05/19 18 06/05/2017 urina lysis , dipst ick, auto Unknown Analyte Clean Catch Not Available [facility] [address] [place] [address] [address], [place], [address], 06/05/2017 10:10:10 06/05/19 18 06/05/2017 urina lysis , dipst ick, auto Unknown Analyte Automa j luis Not Available [facility] [address], [place], [address], 06/05/2017 10:10:10 04/03/20 17 04/03/2017 urina lysis , dipst ick, auto Unknown Analyte Yellow Not Available [facility] [address] [place] [address] [address], [place], [address], 04/03/2017 15:53:25 04/03/20 17 04/03/2017 urina lysis , dipst ick, auto Unknown Analyte Clear Not Available [facility] [address] [place] [address] [address], [place], [address], 04/03/2017 15:53:25 04/03/20 17 04/03/2017 urina lysis , dipst ick, auto Unknown Analyte 1.015 Not Available [facility] [address], [place], [address], 04/03/2017 15:53:25 04/03/20 17 04/03/2017 urina lysis , dipst ick, auto Unknown Analyte 5.0 Not Available [facility] [address], [place], [address], 04/03/2017 15:53:25 04/03/20 17 04/03/2017 urina lysis , dipst ick, auto Unknown Analyte 25 Kajal/ul Trace Not Available [facility] [address] [place] [address] [address], [place], [address], 04/03/2017 15:53:25 04/03/20 17 04/03/2017 urina lysis , dipst ick, auto Unknown Analyte Negati ve Not Available [facility] [address], [place], [address], 04/03/2017 15:53:25 04/03/20 17 04/03/2017 urina lysis , dipst ick, auto Unknown Analyte Negtiv e Not Available [facility] [address], [place], [address], 04/03/2017 15:53:25 04/03/20 17 04/03/2017 urina lysis , dipst ick, auto Unknown Analyte Normal Not Available [facility] [address], [place], [address], 04/03/2017 15:53:25 04/03/20 17 04/03/2017 urina lysis , dipst ick, auto Unknown Analyte Negati ve Not Available [facility] [address], [place], [address], 04/03/2017 15:53:25 04/03/20 17 04/03/2017 urina lysis , dipst ick, auto Unknown Analyte Normal Not Available [facility] [address], [place], [address], 04/03/2017 15:53:25 04/03/20 17 04/03/2017 urina lysis , dipst ick, auto Unknown Analyte Negati ve Not Available [facility] [address], [place], [address], 04/03/2017 15:53:25 04/03/20 17 04/03/2017 urina lysis , dipst ick, auto Unknown Analyte Negati ve Not Available [facility] [address], [place], [address], 04/03/2017 15:53:25 04/03/20 17 04/03/2017 urina lysis , dipst ick, auto Unknown Analyte Clean Catch Not Available [facility] [address], [place], [address], 04/03/2017 15:53:25 04/03/20 17 04/03/2017 urina lysis , dipst ick, auto Unknown Analyte Automa j luis Not Available [facility] [address], [place], [address], 04/03/2017 15:53:25 03/13/20 17 03/13/2017 urina lysis , dipst ick, auto Unknown Analyte Yellow Not Available [facility] [address] [place] [address] [address], [place], [address], 03/13/2017 09:40:09 03/13/20 17 03/13/2017 urina lysis , dipst ick, auto Unknown Analyte Clear Not Available [facility] [address] [place] [address] [address], [place], [address], 03/13/2017 09:40:09 03/13/20 17 03/13/2017 urina lysis , dipst ick, auto Unknown Analyte 1.015 Not Available [facility] [address], [place], [address], 03/13/2017 09:40:09 03/13/20 17 03/13/2017 urina lysis , dipst ick, auto Unknown Analyte 6.0 Not Available [facility] [address], [place], [address], 03/13/2017 09:40:09 03/13/20 17 03/13/2017 urina lysis , dipst ick, auto Unknown Analyte Negati ve Not Available [facility] [address], [place], [address], 03/13/2017 09:40:09 03/13/20 17 03/13/2017 urina lysis , dipst ick, auto Unknown Analyte Negati ve Not Available [facility] [address], [place], [address], 03/13/2017 09:40:09 03/13/20 17 03/13/2017 urina lysis , dipst ick, auto Unknown Analyte Negtiv e Not Available [facility] [address], [place], [address], 03/13/2017 09:40:09 03/13/20 17 03/13/2017 urina lysis , dipst ick, auto Unknown Analyte Normal Not Available [facility] [address], [place], [address], 03/13/2017 09:40:09 03/13/20 17 03/13/2017 urina lysis , dipst ick, auto Unknown Analyte Negati ve Not Available [facility] [address], [place], [address], 03/13/2017 09:40:09 03/13/20 17 03/13/2017 urina lysis , dipst ick, auto Unknown Analyte Normal Not Available [facility] [address] [place] [address] [address], [place], [address], 03/13/2017 09:40:09 03/13/20 17 03/13/2017 urina lysis , dipst ick, auto Unknown Analyte Negati ve Not Available [facility] [address] [place] [address] [address], [place], [address], 03/13/2017 09:40:09 03/13/20 17 03/13/2017 urina lysis , dipst ick, auto Unknown Analyte Negati ve Not Available [facility] [address] [place] [address] [address], [place], [address], 03/13/2017 09:40:09 03/13/20 17 03/13/2017 urina lysis , dipst ick, auto Unknown Analyte Clean Catch Not Available [facility] [address] [place] [address] [address], [place], [address], 03/13/2017 09:40:09 03/13/20 17 03/13/2017 urina lysis , dipst ick, auto Unknown Analyte Automa j luis Not Available [facility] [address] [place] [address] [address], [place], [address], 03/13/2017 09:40:09 06/05/19 18 06/05/2017 cultu re, urine results [facility] e: CCGIGI Colle cted: 06/05 10:26 Site: Purnimai mallika : 06/05 20:42 URINE SCREE N(CUL TURE) FINAL 06/09 13:44 06/06 PRELI MINAR Y:No growt h day 1. 06/09 FINAL :No growt h day 4. Not Available [facility] [address] [place], [address], 06/09/2017 13:44:06 08/15/19 18 08/14/2017 PSA, serum or plasm a PSA 2.2 NG/mL 0.0 - 4.0 Not Available [facility] [address], [place], [address], 08/14/2017 16:32:48 09/11/19 19 09/10/2018 PSA, serum or plasm a prostate specific antigen 4.25 NG/mL 0.00-4 .50 normal The % Free PSA ratio is usefu l as an aid in disti nguis tracie prost ate cance r from benig n prost atic condi tions in men 50 years or older who have a digit al recta l exam that is not suspi cious for prost ate cance r and a Total PSA value in the range of 4.0-1 0.0. Pleas e notif y the lab at ext. 4150 withi n 24 hrs. if add-o n testi ng of Free PSA is harjit ed. Test metho d is based on WHO-s tanda rdize d calib ratio n using the Alex Kunal E601 raheem zer. PSA resul ts from diffe rent test metho ds are not inter regalado eable . A singl e PSA scree tatianna test shoul d not be used as the sole evide nce of the prese nce or absen ce of disea se. Not Available [facility] [address] [place], [address], 09/10/2018 20:36:51 Result Notes None recorded. Problems Name Problem SNOMED Code Status Onset Date Resolution Date Notes Provider Name and Address Organization Details Recorded Time Lower urinary tract symptoms due to benign prostatic hypertrop 33268417591 101 Active 2014 Provider: Cinthia Nieves Jr atus: Active Not Available [facility] 6 08:27:53 Prostate specific antigen above reference range 581657606 Active 2014 Provider: Cinthia Nieves Jr atus: Active Not Available [facility] 6 08:27:53 Retention of urine 136132936 Active 2016 SNEHA NIEVES JR, MD [address] [place] [address], [address] , [facility] 7 09:55:57 Problem Notes None recorded. Procedures Surgical History Date Name Laterality Status Provider Name and Address Organization Details Recorded Time 018 CYSTOSCOPY (SURG[facility] 05/19/2017 11:20:41 018 LASER VAPORIZATION OF PROSTATE, INCLUDING CONTROL OF POSTOPERATIVE BLEEDING, COMPLETE (SURG) completed [facility] 05/19/2017 11:01:53 017 Cyst[facility]rethroscopy [facility] 04/03/2017 15:54:59 013 Biopsy of prostate completed Amor Lyons [facility] 08/15/2016 16:06:55 Imaging Results None recorded. Procedure Notes None recorded. Medical Equipment None Reported. Allergies Allergen ID Allergen Name Allergen Category Reaction Reaction Severity Criticality Documentation Date Start Date Code Code System Note Provider Name and Address Organization Details Recorded Time 802643 Product containin g penicilli n (product) medicatio n Not available Not available Not available 03/22/20162012 99962 8001 SNOMED Comme nt: Creat ed By: Sherita dietz Date: 03/18 2:32: 09 PM; Not Available [facility] 6 08:49:55 Medications Name Sig Start Date Stop Date Status Note LastModified by Organization Details LastModified Time tamsulosi n 0.4 mg capsule take 2 capsules by mouth once daily 2018 active Not Available Not Available Not Avai lable omeprazol e 20 mg capsule,d elayed release Take 1 capsule every day by oral route. active Not Available Not Available No t Available finasteri de 5 mg tablet Take 1 tablet every day by oral route for 30 days. 09/10 completed Not Available Not Available Not Available alfuzosin ER 10 mg tablet,ex tended release 24 hr take 1 tablet by mouth once daily 03/13 completed Not Available Not Available Not Available triamcino lone acetonide active Medicati on Descript ion: triamcin olone topical; refills: 0 Not Available Not Available Not Available atorvasta tin active Not Available Not Available Not Available aspirin active Not Available Not Avail able Not Available vitamin B complex active Medicati on Descript ion: multivit crowder; refills: 0 Not Available Not Available Not Available carvedilo l active Not Available Not Available Not Available prednison e 09/10 completed Not Available Not Available Not Available lisinopri l active Not Available Not Available Not Available [employer] G 09/10 completed Not Available Not Available Not Available Vitals Date Recorded Body height Body mass index (BMI) Body weight Heart rate Systolic blood pressure Diastolic blood pressure Provider Name and Address Organization Details Last Updated DateTime 8 177.8 cm 29.4 kg/m2 66871.4 4 g 74 /min 145 mm[Hg] 79 mm[Hg] [facility] 8 10:09:04 Date Recorded Body height Body mass index (BMI) Body weight Heart rate Systolic blood pressure Diastolic blood pressure Provider Name and Address Organization Details Last Updated DateTime 8 177.8 cm 29.4 kg/m2 08085.4 4 g 67 /min 125 mm[Hg] 80 mm[Hg] Jimena Tonny [facility] 8 16:12:36 Date Recorded Body height Body mass index (BMI) Body weight Heart rate Systolic blood pressure Diastolic blood pressure Provider Name and Address Organization Details Last Updated DateTime 9 177.8 cm 29.4 kg/m2 75879.4 4 g 64 /min 130 mm[Hg] 75 mm[Hg] [facility] 9 15:04:10 Date Recorded Body height Body mass index (BMI) Body weight Systolic blood pressure Diastolic blood pressure Provider Name and Address Organization Details Last Updated DateTime 04/03/2017 177.8 cm 29.4 kg/m2 57167.44 g 130 mm[Hg] 90 mm[Hg] Davide Mendoza [facility] 7 15:52:43 Social History Question Answer Notes LastModified by Organizat ion Details LastModified Time Tobacco Smoking Status Never Smoker Amor Lyons [facility] 08/15/2016 16:06:32 How Much Tobacco Do You Chew? None [email or web address] Information not available 09/10/2018 Marital Status Single Informati on not available 08/15/2016 What Was The Date Of Your Most Recent Tobacco Screening? 09/10/2018 Information n ot available 06/15/2019 Sex: Unknown Functional Status Question Answer Note LastModified by Organization D etails LastModified Time What is your level of alcohol consumption? None Information not available 08/15/2016 Mental Status None recorded. Family History Relationship Description Onset Age of this Age Resolved Age Notes LastModified by Organization Details LastModified Time Father No current problems or disability [email or web address] Not available 16:06:28 Mother No current problems or disability [email or web address] Not available 16:06:28 Medical History Condition Response Gout N Kidney Stones N Heart Arrhythmia N Erectile Dysfunction N Emphysema N Depression N Pneumonia N Cancer Prostate N Anxiety Disorder N Arthritis N Acid Reflux (GERD) N Cancer N Stroke N Kidney Disease N Heart Conditions N Urinary Problems N Ulcers N Low Testosterone N Tuberculosis N AIDS/HIV N BPH N Urinary Tract Infection N Asthma N Thyroid Disorder N Hepatitis N Glaucoma N Anesthesia Complications N Radiation Therapy N High Cholesterol N High PSA N Liver Disease N Allergies/Hayfever N False Teeth N Chronic Obstructive Pulmonary Disease N Chemotherapy N Anemia N Heart Attack (GA) N Mental Illness N Diabetes N Seizures/Epilepsy N Congestive Heart Failure (CHF) N Sleep Apnea N Heart Disease N Bronchitis N Hypertension N Past Encounters Encounter ID Performer Location Encounter Start Date Encounter Closed Date Diagnosis/Indication Diagnosis SNOMED-CT Code Diagnosis ICD10 Code Diagnosis Note [id number] SNEHA NIEVES JR, MD [facility] [address] [place] [address] 08/15/2016 15:38:42 08/19/2016 13:05:26 Lower urinary tract symptoms due to benign prostatic hypertrophy 8821480164 9101 N40.1 Prostate s pecific antigen above reference range 875103261 R97.20 [id number] SNEHA NIEVES JR, MD [facility] [address] [place] [address] 02/13/2017 15:45:18 02/14/2017 13:31:06 Lower urinary tract symptoms due to benign prostatic hypertrophy 6975825475 9101 N40.1 Prostate s pecific antigen above reference range 990555986 R97.20 [id number] SNEHA NIEVES JR, MD [facility] [address] [place] [address] 03/13/2017 09:27:56 03/13/2017 14:26:41 Lower urinary tract symptoms due to benign prostatic hypertrophy 0448567799 9101 N40.1 Retention of urine 13151 4002 R33.9 [id number] SNEHA NIEVES JR, MD SURGERY SCHEDULE [address] [place] [address] 03/26/2017 12:55:08 03/26/2017 13:11:07 [id number] SNEHA NIEVES JR, MD [facility] [address] [place] [address] 04/03/2017 15:35:02 04/07/2017 12:56:25 Lower urinary tract symptoms due to benign prostatic hypertrophy 3183097716 9101 N40.1 [id number] SNEHA NIEVES JR, MD [facility] [address] [place], [place] [address] 06/05/2017 09:49:17 06/05/2017 12:11:51 Lower urinary tract symptoms due to benign prostatic hypertrophy 4467747254 9101 N40.1 [id number] SNEHA NIEVES JR, MD [facility] [address] [address] 08/14/2017 15:48:36 08/14/2017 17:10:57 Lower urinary tract symptoms due to benign prostatic hypertrophy 0634900161 9101 N40.1 Prostate s pecific antigen above reference range 382525467 R97.20 [id number] SNEHA NIEVES JR, MD [facility] [address] [place] [address] 09/10/2018 14:26:48 09/10/2018 15:05:44 Prostate specific antigen above reference range 039380691 R97.20 Lower urin lakshmi tract symptoms due to benign prostatic hypertrophy 3660549798 9101 N40.1 Health Concerns Section Related Observation LastModified by Organization Detai ls LastModified Time None Recorded Concern Status LastModified by Organization Details LastModified Time None Recorded Advance Directives Directive None Recorded Payers Insurance Date Sequence Insurance Name Policy Number Policy Pink Covered Member ID Pink Member ID Guarantor Name 09/14/2018 2 [place] [id number] Ed Wanging [id number] Ed E Jackson 09/10/2018 1 [place] Ed E Jackson [id number] Ed E Jackson Notes Date Note Type Note Provider Name and Address Organization Details Recorded Time 04/03/2017 text/html SURGERY DATE: 03/26/2017 PREOPERATIVE DIAGNOSIS: BPH with bladder outlet obstruction and a history of recent episodic urinary retention. POSTOPERATIVE DIAGNOSIS: BPH with bladder outlet obstruction and a history of recent episodic urinary retention. PROCEDURE: Cystoscopy and UroFlow. SURGEON: Sneha Nieves Jr., M.D. ANESTHESIA: Local. FINDINGS: Uroflowmetry shows a voided volume of 101 mL. Flow time is 35.3 seconds. Q-Max is 5.3 mL per second. Q-Mean is 2.9 mL per second. Cystoscopy shows trilobar hypertrophy with a large median lobe and lateral lobe obstruction. on a low she's been patient is in today for evaluation and follow-up of BPH and elevated PSA. In 2012 the patient underwent biopsy of the prostate which was negative. In 2014 because of persistently rising PSA he underwent MRI of the prostate which did not show any suspicious areas. patient is had recent problems with urinary retention. He has had an indwelling [place] catheter twice since we last saw him. He also required intermittent catheterization yesterday. He is currently on finasteride and tamsulosin. His primary care physician started him on a prednisone taper. Today he is voiding adequately. SNEHA NIEVES JR, MD [facility] [place], [address], [facility] 04/06/2017 18:15:17 06/05/2017 text/html patient is in to day for follow-up of BPH and history of urinary retention. He underwent TURP on May 16, 2017. He is recovered well and is voiding with a good stream. Pathology at the time of surgery is benign. [place], [address], [facility] 06/05/2017 10:24:07 08/14/2017 text/html patient is in to day for follow-up of BPH and history of urinary retention. He underwent TURP on May 16, 2017. He is recovered well and is voiding with a good stream. Pathology at the time of surgery is benign. [place], [address], [facility] 08/17/2017 17:25:45 09/10/2018 text/html patient is in to day for follow-up of BPH and history of urinary retention. He underwent TURP on May 16, 2017. He is recovered well and is voiding with a good stream. Pathology at the time of surgery is benign. Patient is now off of finasteride and alpha blockade. [place], [address], [facility] 09/11/2018 08:13:29
[2024-10-07 14:03] LABS: Prostate Specific Ag Screen 5.8 ng/ml (0.0-4.0)
[2024-10-07 15:24] LABS: Hemoglobin A1C 5.6 % (4.0-6.0)
== END 2024-10-07 23:59 | disposition home or self-care (01) ==
LOC: LAB 11:37
PROVIDERS: PCP Internal Medicine Adolescent Medicine; Visit Provider Internal Medicine Adolescent Medicine
DX: I25.10 Atherosclerotic heart disease of native coronary artery without angina pectoris (principal); Z12.5 Encounter for screening for malignant neoplasm of prostate; R73.9 Hyperglycemia, unspecified; Z86.2 Personal history of diseases of the blood and blood-forming organs and certain disorders involving the immune mechanism; N40.1 Benign prostatic hyperplasia with lower urinary tract symptoms
CPT/HCPCS: 36415; 80053; 80061; 83036; 85025; G0103